=== PATIENT | male | born 1970 | race Caucasian/White ===

== ENCOUNTER 2018-08-26 08:49 | Inpatient (IN) | payer OTHER ==
[~2018-08-26] VITALS: Ht 165.1 cm; Wt 86.2 kg
[2018-08-26] MEDS ORDERED: KETOROLAC 60MG/2ML VIAL IM STA (09:48)
[2018-08-26] MEDS ORDERED: SODIUM CHLORIDE 0.9% 1,000 ML IV ONE (10:13)
[2018-08-26] MEDS ORDERED: VANCOMYCIN 1 G PREMIX 200 ML IV NR (10:15)
[2018-08-26] MEDS ORDERED: PIPERACILLIN/TAZ 3.375G PREMIX 50 ML IV NR (10:15)
[2018-08-26 10:40] LABS: CLARITY URINE CLEAR (CLEAR); COLOR URINE ORANGE (YELLOW); KETONES URINE 3+ (NEGATIVE); LEUKOCYTE ESTERASE URINE NEGATIVE (NEGATIVE); NITRITE URINE NEGATIVE (NEGATIVE); OCCULT BLOOD URINE NEGATIVE (NEGATIVE); PROTEIN URINE 2+ (NEGATIVE); SPECIFIC GRAVITY URINE 1.036 (1.005-1.030); UROBILINOGEN URINE 0.2 E.U./dL (0.2-1.0)
[2018-08-26] MEDS ORDERED: IBUPROFEN 600MG TABLET PO PRN (10:45)
[2018-08-26 10:53] LABS: HEMATOCRIT. 50.3 % (42.0-52.0); HEMOGLOBIN. 17.3 g/dL (14.0-18.0); MEAN CORPUSCULAR HEMOGLOBIN 32.4 pg (28.0-32.0); MEAN CORPUSCULAR VOLUME 94.1 fL (80.0-94.0); MEAN PLATELET VOLUME 8.3 fl (7.4-10.4); PLATELET 139 x1000/uL (130-400); RED BLOOD CELL COUNT 5.34 mill/uL (4.7-6.1)
[2018-08-26 10:58] LABS: CHLORIDE 94 mEq/L (98-107)
[2018-08-26 11:00] LABS: INR 0.9; PROTHROMBIN TIME 9.4 sec (9.1-11.1)
[2018-08-26] MEDS ORDERED: SODIUM CHLORIDE 0.9% 1,000 ML IV NR (11:00)
[2018-08-26 11:20] LABS: PLATELET ESTIMATE NORMAL
[2018-08-26 12:00] VITALS: BP 158/99
[2018-08-26] MEDS ORDERED: SODIUM CHLORIDE 0.9% 1000ML BAG (SEPSIS BOLUS) IV ONE (12:00)
[2018-08-26 12:55] VITALS: BP 158/99
[2018-08-26] MEDS ORDERED: IPRATROPIUM/ALBUTEROL 0.5-3(2.5)MG/3ML NEB INH PRN (13:00)
[2018-08-26] MEDS ORDERED: DIPHENHYDRAMINE 50MG/ML VIAL IV PRN (13:00)
[2018-08-26] MEDS ORDERED: ONDANSETRON HCL 4MG/2ML INJ IV PRN (13:00)
[2018-08-26] MEDS ORDERED: HYDROCODONE/ACETAMINOPHEN 5/325MG TABLET PO PRN (13:00)
[2018-08-26] MEDS ORDERED: MAGNESIUM/ALUMINUM HYDROXIDE/SIMETHICONE 30ML UDC PO PRN (13:00)
[2018-08-26] MEDS ORDERED: DEXTROSE 50% WATER 50ML SYRINGE IV PRN (13:45)
[2018-08-26] MEDS: MORPHINE SULFATE 4 MG/ML CPJ (NOT FOR IM USE) IV PRN ×3 (13:49→22:21)
[2018-08-26 14:15] LABS: PHOSPHORUS 2.7 mg/dL (2.5-4.9)
[2018-08-26 14:19] LABS: CREATINE KINASE MB FRACTION 1.7 ng/mL (0.5-3.6)
[2018-08-26 16:00] VITALS: BP 150/94
[2018-08-26] MEDS: CLONIDINE 0.1MG TABLET PO PRN (17:28)
[2018-08-26] MEDS: BLOOD SUGAR DIAGNOSTIC STRIP TEST SCH ×2 (17:59→20:49)
[2018-08-26] MEDS: INSULIN LISPRO 100 UNITS/ML SUBCUT SCH ×2 (18:07→20:58)
[2018-08-26] MEDS: ACETAMINOPHEN 325MG TABLET PO PRN (19:42)
[2018-08-26 20:00] VITALS: BP 126/81
[2018-08-27] VITALS: BP 152/96
[2018-08-27 01:18] LABS: CREATINE KINASE MB FRACTION 1.5 ng/mL (0.5-3.6)
[2018-08-27] MEDS: MORPHINE SULFATE 4 MG/ML CPJ (NOT FOR IM USE) IV PRN ×4 (03:14→20:38)
[2018-08-27] MEDS: ACETAMINOPHEN 325MG TABLET PO PRN ×2 (03:20→16:35)
[2018-08-27] MEDS: BLOOD SUGAR DIAGNOSTIC STRIP TEST SCH ×4 (06:42→20:45)
[2018-08-27 07:52] LABS: BASOPHILS % 0.2 % (0.0-2.0); EOSINOPHILS % 0.8 % (0.0-5.0); HEMATOCRIT. 42.1 % (42.0-52.0); HEMOGLOBIN. 14.5 g/dL (14.0-18.0); LYMPHOCYTES % 7.7 % (20.0-50.0); MEAN CORPUSCULAR HEMOGLOBIN 32.4 pg (28.0-32.0); MEAN CORPUSCULAR VOLUME 94.3 fL (80.0-94.0); MEAN PLATELET VOLUME 8.5 fl (7.4-10.4); MONOCYTES % 7.5 % (2.0-8.0); NEUTROPHILS % 83.8 % (40.0-76.0); PLATELET 123 x1000/uL (130-400); RED BLOOD CELL COUNT 4.47 mill/uL (4.7-6.1); RED CELL DISTRIBUTION WIDTH 12.9 % (11.6-14.6)
[2018-08-27 08:00] VITALS: BP 119/79
[2018-08-27 08:09] LABS: CHLORIDE 95 mEq/L (98-107)
[2018-08-27 08:17] LABS: LDL CHOLESTEROL 121 mg/dL (5-100)
[2018-08-27 08:22] LABS: HDL CHOLESTEROL 43 mg/dL (40-59)
[2018-08-27] MEDS: INSULIN LISPRO 100 UNITS/ML SUBCUT SCH ×4 (08:23→20:54)
[2018-08-27] MEDS: CLONIDINE 0.1MG TABLET PO PRN ×2 (10:24→16:35)
[2018-08-27 12:44] VITALS: BP 157/99
[2018-08-27 16:00] VITALS: BP 153/100
[2018-08-27] MEDS: HYDROCODONE/ACETAMINOPHEN 10/325MG TABLET PO PRN (17:56)
[2018-08-27] MEDS: PIPERACILLIN/TAZ 3.375G PREMIX 50 ML IV SCH ×2 (17:57→23:04)
[2018-08-27] MEDS ORDERED: VANCOMYCIN 1500MG in DEXTROSE 5% WATER 250ML IV NR (18:00)
[2018-08-27 20:00] VITALS: BP 133/76
[2018-08-27] MEDS ORDERED: INSULIN GLARGINE UD 100 UNITS/ML SYR SUBCUT SCH (22:00)
[2018-08-28] VITALS: BP 154/98
[2018-08-28] MEDS: ACETAMINOPHEN 325MG TABLET PO PRN (00:13)
[2018-08-28] MEDS: MORPHINE SULFATE 4 MG/ML CPJ (NOT FOR IM USE) IV PRN ×5 (01:42→20:38)
[2018-08-28] MEDS: VANCOMYCIN 1 G PREMIX 200 ML IV SCH ×3 (01:42→18:36)
[2018-08-28 04:00] VITALS: BP 138/77
[2018-08-28] MEDS: PIPERACILLIN/TAZ 3.375G PREMIX 50 ML IV SCH ×3 (04:55→17:46)
[2018-08-28] MEDS: BLOOD SUGAR DIAGNOSTIC STRIP TEST SCH ×4 (06:41→20:35)
[2018-08-28 07:18] LABS: CHLORIDE 93 mEq/L (98-107)
[2018-08-28 07:29] LABS: HEMATOCRIT. 43.2 % (42.0-52.0); MEAN CORPUSCULAR HEMOGLOBIN 32.5 pg (28.0-32.0); MEAN CORPUSCULAR VOLUME 93.6 fL (80.0-94.0); MEAN PLATELET VOLUME 8.2 fl (7.4-10.4); PLATELET 157 x1000/uL (130-400); RED BLOOD CELL COUNT 4.61 mill/uL (4.7-6.1); RED CELL DISTRIBUTION WIDTH 12.6 % (11.6-14.6)
[2018-08-28 08:00] VITALS: BP 154/82
[2018-08-28] MEDS: HYDROCODONE/ACETAMINOPHEN 10/325MG TABLET PO PRN ×2 (08:16→17:47)
[2018-08-28] MEDS: INSULIN LISPRO 100 UNITS/ML SUBCUT SCH ×4 (08:18→21:04)
[2018-08-28 12:00] VITALS: BP 123/86
[2018-08-28 16:00] VITALS: BP 149/88
[2018-08-28 20:00] VITALS: BP 129/86
[2018-08-28] MEDS: INSULIN GLARGINE UD 100 UNITS/ML SYR SUBCUT SCH (21:04)
[2018-08-29] VITALS: BP 150/103
[2018-08-29] MEDS: PIPERACILLIN/TAZ 3.375G PREMIX 50 ML IV SCH ×3 (01:32→11:16)
[2018-08-29] MEDS: MORPHINE SULFATE 4 MG/ML CPJ (NOT FOR IM USE) IV PRN ×2 (01:43→08:42)
[2018-08-29] MEDS: VANCOMYCIN 1 G PREMIX 200 ML IV SCH ×3 (02:38→17:42)
[2018-08-29 04:00] VITALS: BP 138/80
[2018-08-29] MEDS: BLOOD SUGAR DIAGNOSTIC STRIP TEST SCH ×4 (05:37→21:42)
[2018-08-29 07:26] LABS: CHLORIDE 96 mEq/L (98-107)
[2018-08-29 07:54] LABS: BASOPHILS % 0.2 % (0.0-2.0); EOSINOPHILS % 1.1 % (0.0-5.0); HEMATOCRIT. 41.4 % (42.0-52.0); HEMOGLOBIN. 14.4 g/dL (14.0-18.0); LYMPHOCYTES % 9.3 % (20.0-50.0); MEAN CORPUSCULAR HEMOGLOBIN 32.2 pg (28.0-32.0); MEAN CORPUSCULAR VOLUME 92.8 fL (80.0-94.0); MONOCYTES % 9.3 % (2.0-8.0); NEUTROPHILS % 80.1 % (40.0-76.0); PLATELET 169 x1000/uL (130-400); RED BLOOD CELL COUNT 4.46 mill/uL (4.7-6.1); RED CELL DISTRIBUTION WIDTH 12.9 % (11.6-14.6)
[2018-08-29 08:00] VITALS: BP_SYST 138; BP_DIAS 82; BP_DIAS 89
[2018-08-29] MEDS: INSULIN LISPRO 100 UNITS/ML SUBCUT SCH ×4 (08:36→22:02)
[2018-08-29] MEDS: INSULIN GLARGINE UD 100 UNITS/ML SYR SUBCUT SCH ×2 (09:58→22:02)
[2018-08-29 10:42] LABS: PLATELET ESTIMATE NORMAL
[2018-08-29 12:00] VITALS: BP_SYST 131; BP_SYST 138; BP_DIAS 72; BP_DIAS 79
[2018-08-29] MEDS ORDERED: LIDOCAINE HCL 1% 20ML VIAL (Pyxis) INJ ONE ×2 (13:19→13:32)
[2018-08-29] MEDS ORDERED: SKIN ADHESIVE 0.7 GM EA TOP ONE (13:19)
[2018-08-29] MEDS ORDERED: BACITRACIN 15GM TUBE TOP ONE (13:19)
[2018-08-29] MEDS ORDERED: BACITRACIN 50,000 UNITS/VIAL ONE ×2 (13:20→15:14)
[2018-08-29] MEDS ORDERED: NORMAL SALINE 0.9% 10 ML SYR ONE (13:20)
[2018-08-29] MEDS ORDERED: BUPIVACAINE HCL 0.5% (5MG/ML) 50ML ONE (13:20)
[2018-08-29] MEDS ORDERED: FENTANYL CITRATE/PF 50MCG/ML 2ML VIAL ONE (13:26)
[2018-08-29] MEDS ORDERED: PROPOFOL 200MG/20ML VIAL IV ONE (13:27)
[2018-08-29] MEDS ORDERED: MIDAZOLAM HCL 2 MG/2 ML VIAL ONE (13:27)
[2018-08-29] MEDS ORDERED: SUCCINYLCHOLINE CHLORIDE 200MG/10ML IV ONE (13:30)
[2018-08-29] MEDS ORDERED: ROCURONIUM BROMIDE 10MG/ML VIAL 5ML IV ONE (13:33)
[2018-08-29] MEDS ORDERED: ESMOLOL HCL 10MG/ML 10ML VIAL IV ONE (13:36)
[2018-08-29] MEDS ORDERED: ONDANSETRON HCL 4MG/2ML INJ ONE (14:02)
[2018-08-29] MEDS ORDERED: HYDROMORPHONE HCL/PF 2MG/ML CPJ IV PRN ×2 (14:45→15:00)
[2018-08-29] MEDS ORDERED: HYDRALAZINE 20MG/ML VIAL ONE (14:54)
[2018-08-29 16:00] VITALS: BP 138/66
[2018-08-29] MEDS: HYDROCODONE/ACETAMINOPHEN 10/325MG TABLET PO PRN ×2 (17:43→21:43)
[2018-08-29 20:00] VITALS: BP 131/72
[2018-08-29] MEDS ORDERED: INSULIN GLARGINE UD 100 UNITS/ML SYR SUBCUT SCH (22:00)
[2018-08-30] VITALS: BP 133/82
[2018-08-30] MEDS: VANCOMYCIN 1250MG in DEXTROSE 5% WATER 250ML IV SCH ×3 (02:56→16:14)
[2018-08-30] MEDS: HYDROCODONE/ACETAMINOPHEN 10/325MG TABLET PO PRN ×3 (03:45→16:25)
[2018-08-30 04:00] VITALS: BP 140/90
[2018-08-30 04:56] LABS: CHLORIDE 95 mEq/L (98-107)
[2018-08-30 05:44] LABS: BASOPHILS % 0.2 % (0.0-2.0); HEMATOCRIT. 43.2 % (42.0-52.0); HEMOGLOBIN. 14.9 g/dL (14.0-18.0); MEAN CORPUSCULAR HEMOGLOBIN 32.2 pg (28.0-32.0); MEAN CORPUSCULAR VOLUME 93.8 fL (80.0-94.0); MEAN PLATELET VOLUME 7.8 fl (7.4-10.4); MONOCYTES % 10.6 % (2.0-8.0); NEUTROPHILS % 78.2 % (40.0-76.0); PLATELET 204 x1000/uL (130-400); RED BLOOD CELL COUNT 4.61 mill/uL (4.7-6.1); RED CELL DISTRIBUTION WIDTH 12.6 % (11.6-14.6)
[2018-08-30] MEDS: BLOOD SUGAR DIAGNOSTIC STRIP TEST SCH ×3 (07:28→18:13)
[2018-08-30 08:00] VITALS: BP 146/95
[2018-08-30] MEDS: INSULIN LISPRO 100 UNITS/ML SUBCUT SCH ×2 (08:46→12:38)
[2018-08-30] MEDS: INSULIN GLARGINE UD 100 UNITS/ML SYR SUBCUT SCH (09:37)
[2018-08-30 12:00] VITALS: BP 148/85
[2018-08-30 16:00] VITALS: BP 145/95
[2018-08-30 17:12] VITALS: BP 145/95
== END 2018-08-30 18:31 | disposition home health service (06) | DRG 710 ==
LOC: ER 08:49 → 6EST 10:45 → ENRESERV 11:09
PROVIDERS: ADMIT Internal Medicine; ATTEND Internal Medicine
PROC: 0J970ZX Drainage of Back Subcutaneous Tissue and Fascia, Open Approach, Diagnostic (ICD-10-PCS; principal; 2018-08-29)
PROC: 0JD70ZZ Extraction of Back Subcutaneous Tissue and Fascia, Open Approach (ICD-10-PCS; 2018-08-29)
DX: A41.9 Sepsis, unspecified organism (principal); E87.1 Hypo-osmolality and hyponatremia; L03.221 Cellulitis of neck; E11.9 Type 2 diabetes mellitus without complications; L02.232 Carbuncle of back [any part, except buttock and flank]; E66.9 Obesity, unspecified; E78.5 Hyperlipidemia, unspecified; R65.20 Severe sepsis without septic shock; M19.90 Unspecified osteoarthritis, unspecified site; I10 Essential (primary) hypertension; Z79.4 Long term (current) use of insulin; Z68.31 Body mass index [BMI] 31.0-31.9, adult; Z71.3 Dietary counseling and surveillance
CPT/HCPCS: 36415; 71045; 76881; 80048; 80061; 80202; 82550; 82553; 82962; 83036; 83605; 83735; 84100; 84443; 87070; 87075; 87077; 93005; 93970; 96372; 96374; 97162; 97166; 99285; J0330; J0360; J1815; J1885; J2250; J2270; J2405; J2543; J2704; J3010; J3370; J3490; J7040; J7060

== ENCOUNTER 2020-10-21 05:39 | Emergency (ER) | payer MEDICAID, OTHER ==
[~2020-10-21] VITALS: Ht 165.1 cm; Wt 91.0 kg
[2020-10-21] MEDS ORDERED: ACETAMINOPHEN 325MG TABLET PO ONE (07:00)
[2020-10-21 08:13] VITALS: BP 161/101
== END 2020-10-21 08:14 | disposition home or self-care (01) ==
LOC: ER 05:39
DX: G56.31 Lesion of radial nerve, right upper limb (principal); E11.9 Type 2 diabetes mellitus without complications; I10 Essential (primary) hypertension; F12.10 Cannabis abuse, uncomplicated
CPT/HCPCS: 29125; 73080; 82962; 99283